=== PATIENT | female | born 1990 | race Caucasian/White ===

== ENCOUNTER 2018-06-19 20:13 | Emergency (ER) | payer SELFPAY ==
[~2018-06-19] VITALS: Ht 144.8 cm; Wt 78.9 kg
[2018-06-19 20:17] VITALS: BP 130/73
--- NOTE | 2018-06-19 20:19 | NUR ---
PT AMBULATORY TO ER LOBBY W/ STEADY GAIT IN STABLE CONDITION.
--- NOTE | 2018-06-19 22:28 | NUR ---
Oliva shi in [facility] - 06/19/18 at 2228 by JESSY PT TAKEN TO BED 8
--- NOTE | 2018-06-19 22:28 | NUR ---
PT TO ER BED 8
--- NOTE | 2018-06-19 23:02 | NUR ---
PT BIB C/O RIGHT SIDED HEADACHE X5 DAYS; 8/10 INTERMETENT HEAD PAIN THAT RADIATES FROM THE RIGHT LOBE TO BACK OF HEAD. PT DESCRIBES THE PAIN PRESSURE. DENIES N/V. +DIZZINESS. PT STATES TO TAKING TYLENOL LAST NIGHT AND EXCEDREN W/O RELIEF. DENIES FALL. AAOX4. AT BEDSIDE. BED IN LOWER LOCKED POSITION; BEDRAILS UP X1. ER MD MADE AWARE OF PT STATUS. HX: DENIES RX: DENIES
--- NOTE | 2018-06-19 23:06 | NUR ---
PT UP TO BATHROOM. AMBULATORY W/STEADY GATE.
--- NOTE | 2018-06-19 23:12 | NUR ---
JALIL BIANCHI AT BEDSIDE FOR EVALUATION.
[2018-06-19] MEDS ORDERED: diphenhydrAMINE 50 MG/ML VIAL IM ONE (23:30)
[2018-06-19] MEDS ORDERED: PROCHLORPERAZINE 10 MG/2 ML VIAL IM ONE (23:30)
[2018-06-20 01:00] VITALS: BP 122/67
--- NOTE | 2018-06-20 01:00 | NUR ---
Patient discharged with v/s stable. Written and verbal after care instructions given and explained. Patient alert, oriented and verbalized understanding of instructions. Ambulatory with steady gait. All questions addressed prior to discharge. ID band removed. Patient advised to follow up with PMD. Rx of Tramadol and Motrin given. Patient educated on indication of medication including possible reaction and side effects. Opportunity to ask questions provided and answered.
== END 2018-06-20 01:00 | disposition home or self-care (01) ==
LOC: MED 20:13
DX: G44.209 Tension-type headache, unspecified, not intractable (principal)
CPT/HCPCS: 81002; 81025; 96372; 99283; J0780; J1200

== ENCOUNTER 2019-03-13 17:17 | Emergency (ER) | payer OTHER ==
[~2019-03-13] VITALS: Ht 144.8 cm; Wt 81.6 kg
[2019-03-13 17:22] VITALS: BP 125/68
--- NOTE | 2019-03-13 17:27 | NUR ---
PT AMBULATED TO ER BED 08
--- NOTE | 2019-03-13 17:35 | NUR ---
PT C/O UPPER TO LEFT CHEST PAIN RADIATING TO LT ARM AND LT SHOULDER NUMBNESS AND TINGLING ON BOTH HANDS FOR 4 HOURS; PT ALSO C/O HEADACHE X2 DAYS. PATIENT STATES PAIN OF 9/10 AT THIS TIME; VSS; PATIENT POSITIONED FOR COMFORT; HOB ELEVATED; BEDRAILS UP X1; BED DOWN. ER MD MADE AWARE OF PT STATUS. PT IS ON MONITOR.
[2019-03-13] MEDS ORDERED: NACL 0.9% 1,000 ML IV ONE (18:20)
[2019-03-13] MEDS ORDERED: diphenhydrAMINE 50 MG/ML VIAL IVP ONE (18:20)
[2019-03-13] MEDS ORDERED: METOCLOPRAMIDE 10 MG/2 ML INJ VIAL IVP ONE (18:20)
--- NOTE | 2019-03-13 18:30 | NUR ---
PT HAS BEEN TAKEN TO CT SCAN VIA WHEELCHIAR ASSISTED BY THERAPY TECHNICIAN.
--- NOTE | 2019-03-13 18:38 | NUR ---
PT HAS BEEN BACK VIA WHEELCHAIR ASSISTED BY RUG DESIGNER.
[2019-03-13 18:58] LABS: BASOPHILS % (AUTO) 0.4 % (0.0-2.0); EOSINOPHILS # (AUTO) 0.1 K/uL (0-0.4); EOSINOPHILS % (AUTO) 1.1 % (0.0-4.0); HEMATOCRIT 39.6 % (36-48); LYMPHOCYTES # (AUTO) 1.9 K/uL (2.5-16.5); LYMPHOCYTES % (AUTO) 21.2 % (20.5-51.1); MEAN CORPUSCULAR HEMOGLOBIN 28 pg (27-31); MEAN CORPUSCULAR HGB CONC 33 g/dL (33-37); MEAN CORPUSCULAR VOLUME 85.8 fL (80-94); MONOCYTES # (AUTO) 0.7 K/uL (0.8-1.0); MONOCYTES % (AUTO) 7.4 % (1.7-9.3); NEUTROPHILS # (AUTO) 6.4 K/uL (1.8-7.7); NEUTROPHILS % (AUTO) 69.9 % (42.2-75.2); PLATELET COUNT (AUTO) 315 K/uL (140-450); RED BLOOD CELL COUNT(AUTO) 4.61 MIL/uL (4.20-5.40); RED CELL DISTRIBUTION WIDTH 14.1 % (11.6-13.7); WHITE BLOOD COUNT (AUTO) 9.1 K/uL (4.8-10.8)
--- NOTE | 2019-03-13 19:06 | NUR ---
Pt report given to CORNELIO Bravo. Transfer of care at this time.
[2019-03-13 19:07] LABS: ANION GAP 10.6 (8-16); CARBON DIOXIDE 29.1 mmol/L (21-32); CREATININE 0.7 mg/dL (0.6-1.3); POTASSIUM 3.7 mmol/L (3.5-5.1)
--- NOTE | 2019-03-13 19:07 | NUR ---
RECEIVED REPORT FROM CORNELIO WEN
[2019-03-13 19:09] LABS: PROTHROMBIN TIME 9.3 secs (10.8-13.4)
[2019-03-13 19:13] LABS: ALBUMIN 3.8 g/dL (3.4-5.0); TOTAL BILIRUBIN 0.3 mg/dL (0.0-1.0)
[2019-03-13 19:48] LABS: APPEARANCE,URINE CLOUDY (CLEAR); BILIRUBIN,URINE NEGATIVE (NEGATIVE); BLOOD, URINE 1+ (NEGATIVE); COLOR,URINE YELLOW (YELLOW); LEUKOCYTE ESTERASE ,URINE 1+ (NEGATIVE); NITRITE, URINE NEGATIVE (NEGATIVE); PH,URINE 7.5 (5.0-9.0); UGLUCOSE NEGATIVE (NEGATIVE)
[2019-03-13 19:53] LABS: RBC,URINE NONE SEEN /HPF (0-5); URIC ACID CRYSTALS,URINE None Seen /HPF (None Seen)
[2019-03-13] MEDS ORDERED: KETOROLAC 30 MG/ML VIAL IVP ONE (20:55)
--- NOTE | 2019-03-13 21:00 | NUR ---
PT RESTING IN BED WITH EYES CLOSED. VSS AT THIS TIME.
--- NOTE | 2019-03-13 21:21 | NUR ---
Patient discharged with v/s stable. Written and verbal after care instructions given and explained. Patient alert, oriented and verbalized understanding of instructions. Ambulatory with to home. All questions addressed prior to discharge. ID band removed. Patient advised to follow up with PMD. Rx of IBURPROFEN 600MG given. Patient educated on indication of medication including possible reaction and side effects. Opportunity to ask questions provided and answered.
[2019-03-13 21:23] VITALS: BP 103/51
== END 2019-03-13 21:21 | disposition home or self-care (01) ==
LOC: MED 17:17
DX: R51 Headache (principal); R11.0 Nausea; R20.0 Anesthesia of skin; R20.2 Paresthesia of skin; R07.89 Other chest pain
CPT/HCPCS: 36415; 70450; 71045; 80053; 81001; 81025; 83690; 83880; 84484; 85025; 85379; 85610; 87086; 93005; 96374; 96375; 99284; J1200; J1885; J2765; J7030

== ENCOUNTER 2020-03-13 22:12 | Emergency (ER) | payer OTHER ==
[~2020-03-13] VITALS: Ht 144.8 cm; Wt 81.8 kg
[2020-03-13 22:19] VITALS: BP 126/76
--- NOTE | 2020-03-13 22:30 | NUR ---
30 Y/O FEMALE PRESENTS TO ER WITH C/O RIGHT SIDE HEADACHE X 2WEEKS. 10/10 PAIN. PT STATES SHE HAS HAD A HEADACHE THAT BEGINS AT THE RIGHT YAZIDI, AND EXTENDS BACK TO RIGHT EAR REGION. PT ALSO STATES LOUD NOISES INTENSIFY HEADACHE. SHE ALSO C/O LIGHTHEADEDNESS, NUMBNESS AND TINGLING FROM NECK TO FINGER TIPS ON BUE, AND RIGHT YAZIDI TO BACK RIGHT EAR REGIION TTP. DENIES N/V/D, VISION CHANGES, INJURY/TRAUMA, SOB, COUGH, LOC, LBP. PT STATES SHE TOOK 500MG OF TYLENOL AT 1500 BEFORE PRESENTING TO ER. LMP 02/2018 PT HAS NEXPLANON IN LEFT ARM. A&OX4, PERRLA, GCS 15, VSS. R/R EQUAL, AND UNLABORED. SIDE RAIL X1, BED IN LOW POSITION, WILL CONTINUE TO MONITOR. NKDA DENIES PMH
[2020-03-13] MEDS ORDERED: KETOROLAC 30 MG/ML VIAL IM/IVP ONE (22:40)
[2020-03-13] MEDS ORDERED: METOCLOPRAMIDE 10 MG/2 ML INJ VIAL IVP ONE (22:40)
[2020-03-13] MEDS ORDERED: NACL 0.9% 1,000 ML IV ONE (22:40)
--- NOTE | 2020-03-13 23:52 | NUR ---
PT RESTING IN BED QUIETLY, VSS, R/R EQUAL, AND UNLABORED. SIDE RAIL X1, BED IN LOW POSITION WILL CONTINUE TO MONITOR.
--- NOTE | 2020-03-14 00:57 | NUR ---
PT RESTING IN BED QUIETLY, VSS, R/R EQUAL, AND UNLABORED. SIDE RAIL X1, BED IN LOW POSITION WILL CONTINUE TO MONITOR.
[2020-03-14 01:05] VITALS: BP 126/76
--- NOTE | 2020-03-14 01:07 | NUR ---
Patient discharged with v/s stable. Written and verbal after care instructions given and explained. Patient alert, oriented and verbalized understanding of instructions. Ambulatory with steady gait. All questions addressed prior to discharge. ID band removed. Patient advised to follow up with PMD. Rx of NORCO, BENADRYL, REGLAN, IBUPROFEN given. Patient educated on indication of medication including possible reaction and side effects. Opportunity to ask questions provided and answered.
== END 2020-03-14 01:06 | disposition home or self-care (01) ==
LOC: MED 22:12
DX: R51 Headache (principal); M54.2 Cervicalgia
CPT/HCPCS: 81002; 81025; 96361; 96374; 96375; 99284; J1885; J2765; J7030

== ENCOUNTER 2020-08-29 13:14 | Emergency (ER) | payer OTHER ==
[~2020-08-29] VITALS: Ht 144.8 cm; Wt 79.4 kg
[2020-08-29 13:19] VITALS: BP 124/61
--- NOTE | 2020-08-29 13:27 | NUR ---
30 Y/O FEMALE C/O LOW BACK PAIN RADIATING TO PELVIC REGION. PATIENT DENIES ANY ACCIDENT OR TRAUMA. PT DESCRIBES PELVIC PAIN CRAMPING, 5/10. DENIES ANY N/V. DENIES ANY DYSURIA OR VAGINAL DISCHARGE. NO OBVIOUS DEFORMITY NOTED. NO PMH NKDA
[2020-08-29] MEDS ORDERED: ACETAMINOPHEN 325 MG TAB PO STA (15:20)
[2020-08-29] MEDS ORDERED: ACETAMINOPHEN EXTRA STRENGTH 500 MG TAB PO ONE (15:35)
--- NOTE | 2020-08-29 15:43 | NUR ---
LAB AT CHAIRSIDE FOR BLOOD DRAW
--- NOTE | 2020-08-29 15:45 | NUR ---
PATIENT TAKEN TO ULTRASOUND VIA WHEELCHAIR
[2020-08-29 15:54] LABS: BASOPHILS % (AUTO) 0.5 % (0.0-2.0); EOSINOPHILS # (AUTO) 0.1 K/uL (0-0.4); EOSINOPHILS % (AUTO) 0.9 % (0.0-4.0); HEMATOCRIT 38.4 % (36-48); HEMOGLOBIN 13.1 g/dL (12.0-16.0); LYMPHOCYTES # (AUTO) 1.7 K/uL (2.5-16.5); MEAN CORPUSCULAR HEMOGLOBIN 31 pg (27-31); MEAN CORPUSCULAR HGB CONC 34 g/dL (33-37); MEAN CORPUSCULAR VOLUME 91.5 fL (80-94); MONOCYTES # (AUTO) 0.5 K/uL (0.8-1.0); MONOCYTES % (AUTO) 6.2 % (1.7-9.3); NEUTROPHILS # (AUTO) 6.3 K/uL (1.8-7.7); NEUTROPHILS % (AUTO) 72.4 % (42.2-75.2); PLATELET COUNT (AUTO) 276 K/uL (140-450); RED CELL DISTRIBUTION WIDTH 13.5 % (11.6-13.7); WHITE BLOOD COUNT (AUTO) 8.7 K/uL (4.8-10.8)
[2020-08-29 16:03] LABS: APPEARANCE,URINE CLEAR (CLEAR); BILIRUBIN,URINE NEGATIVE (NEGATIVE); BLOOD, URINE NEGATIVE (NEGATIVE); COLOR,URINE YELLOW (YELLOW); LEUKOCYTE ESTERASE ,URINE TRACE (NEGATIVE); NITRITE, URINE NEGATIVE (NEGATIVE); PH,URINE 8.5 (5.0-9.0); UGLUCOSE NEGATIVE (NEGATIVE)
[2020-08-29 16:15] LABS: RBC,URINE 0-5 /HPF (0-5)
--- NOTE | 2020-08-29 16:29 | NUR ---
PATIENT STATES DECREASE IN PAIN AFTER RECEIVING TYLENOL. NO COMPLAINTS AT THIS TIME. VSS
[2020-08-29] MEDS ORDERED: NITROFURANTOIN 100 MG CAP PO STA (17:18)
[2020-08-29] MEDS ORDERED: NITR100C7 PO (17:20)
[2020-08-29 17:48] VITALS: BP 124/61
== END 2020-08-29 17:48 | disposition home or self-care (01) ==
LOC: MED 13:14
DX: O23.41 Unspecified infection of urinary tract in pregnancy, first trimester (principal); Z79.899 Other long term (current) drug therapy
CPT/HCPCS: 36415; 76817; 81001; 81025; 84702; 85025; 86900; 86901; 87086; 99284

== ENCOUNTER 2020-10-06 19:04 | Emergency (ER) | payer OTHER ==
[~2020-10-06] VITALS: Ht 152.4 cm; Wt 85.3 kg
[~2020-10-06 19:04] MED LIST: NITR100C7 PO
[2020-10-06 19:10] VITALS: BP 106/44
--- NOTE | 2020-10-06 19:15 | NUR ---
PT AMBULATORY TO BED #1
--- NOTE | 2020-10-06 19:25 | NUR ---
PATIENT PRESENTS TO ED WITH C/O RIGHT LOWER BACK RADIATING DOWN RIGHT LEG X 1 WEEK . PT STATES IS 10 WEEKS . DENIES N/V/D; SKIN IS PINK/WARM/DRY; AAOX4 WITH EVEN AND STEADY GAIT; LUNGS CLEAR BL; HR EVEN AND REGULAR; PT DENIES ANY FEVER, CP, SOB, OR COUGH AT THIS TIME; VSS; PATIENT POSITIONED FOR COMFORT; BEDRAILS UP X2; BED DOWN. ER MD MADE AWARE OF PT STATUS.
--- NOTE | 2020-10-06 19:36 | NUR ---
Dr. Alvarez with pt for MSE
[2020-10-06] MEDS ORDERED: NACL 0.9% 1,000 ML IV ONE (19:45)
[2020-10-06 20:12] LABS: BASOPHILS % (AUTO) 0.5 % (0.0-2.0); EOSINOPHILS # (AUTO) 0.1 K/uL (0-0.4); EOSINOPHILS % (AUTO) 1.1 % (0.0-4.0); HEMOGLOBIN 12.2 g/dL (12.0-16.0); LYMPHOCYTES # (AUTO) 1.8 K/uL (2.5-16.5); LYMPHOCYTES % (AUTO) 22.4 % (20.5-51.1); MEAN CORPUSCULAR HEMOGLOBIN 31 pg (27-31); MEAN CORPUSCULAR HGB CONC 34 g/dL (33-37); MEAN CORPUSCULAR VOLUME 91.7 fL (80-94); MONOCYTES # (AUTO) 0.5 K/uL (0.8-1.0); MONOCYTES % (AUTO) 6.1 % (1.7-9.3); NEUTROPHILS # (AUTO) 5.7 K/uL (1.8-7.7); NEUTROPHILS % (AUTO) 69.9 % (42.2-75.2); PLATELET COUNT (AUTO) 288 K/uL (140-450); RED BLOOD CELL COUNT(AUTO) 3.92 MIL/uL (4.20-5.40); RED CELL DISTRIBUTION WIDTH 13.6 % (11.6-13.7); WHITE BLOOD COUNT (AUTO) 8.2 K/uL (4.8-10.8)
[2020-10-06 20:15] LABS: APPEARANCE,URINE CLEAR (CLEAR); BILIRUBIN,URINE NEGATIVE (NEGATIVE); BLOOD, URINE TRACE-I (NEGATIVE); COLOR,URINE YELLOW (YELLOW); LEUKOCYTE ESTERASE ,URINE 3+ (NEGATIVE); NITRITE, URINE NEGATIVE (NEGATIVE); PH,URINE 6.5 (5.0-9.0); UGLUCOSE NEGATIVE (NEGATIVE)
--- NOTE | 2020-10-06 20:15 | NUR ---
US IN PROGRESS
[2020-10-06 20:22] LABS: WBC,URINE 16-25 (MOD) /HPF (0-5)
[2020-10-06 20:31] LABS: ALBUMIN 3.2 g/dL (3.4-5.0); ANION GAP 10.5 (8-16); CARBON DIOXIDE 26.3 mmol/L (21-32); CREATININE 0.7 mg/dL (0.6-1.3); POTASSIUM 3.8 mmol/L (3.5-5.1); TOTAL BILIRUBIN 0.2 mg/dL (0.0-1.0)
[2020-10-06] MEDS ORDERED: NITR100C7 PO (21:05)
[2020-10-06 21:20] VITALS: BP 107/62
== END 2020-10-06 21:20 | disposition home or self-care (01) ==
LOC: MED 19:04
DX: O23.41 Unspecified infection of urinary tract in pregnancy, first trimester (principal); O26.891 Other specified pregnancy related conditions, first trimester; M54.9 Dorsalgia, unspecified; Z3A.10 10 weeks gestation of pregnancy; Z79.899 Other long term (current) drug therapy
CPT/HCPCS: 36415; 76801; 80053; 81001; 84702; 85025; 87086; 96360; 99284; J7030; 99283

== ENCOUNTER 2021-05-05 20:34 | Emergency (ER) | payer OTHER ==
[~2021-05-05] VITALS: Ht 144.8 cm; Wt 81.6 kg
[2021-05-05 20:55] VITALS: BP 108/68
--- NOTE | 2021-05-05 21:02 | NUR ---
patient given urine cup for urine collection and patient sent to lobby.
--- NOTE | 2021-05-05 23:33 | NUR ---
PT AMBULATED TO ER BED 02 UNASSISTED
[2021-05-06 00:23] VITALS: BP 132/71
--- NOTE | 2021-05-06 00:25 | NUR ---
PATIENT DC HOME FEELING WELL VITALS SIGNS IN NORMAL LIMITS ALL DC INSTRUCTION GAVE AND EXPLAINED WE RECOMEND TO FOLLOW UP WITH PCP OR COMING BACK TO ED IF THE SYMPTOMS DOENT IMPROVING OR GETT WORSE //Iliana GRIMES
== END 2021-05-06 00:25 | disposition home or self-care (01) ==
LOC: MED 20:34
DX: O86.09 Infection of obstetric surgical wound, other surgical site (principal); Z79.899 Other long term (current) drug therapy; Z98.890 Other specified postprocedural states
CPT/HCPCS: 99281

== ENCOUNTER 2022-02-02 16:37 | Emergency (ER) | payer OTHER ==
[~2022-02-02] VITALS: Ht 144.8 cm; Wt 77.6 kg
[2022-02-02 17:02] VITALS: BP 155/68
--- NOTE | 2022-02-02 17:20 | NUR ---
Dr Chatman at bedside for evaluation
[2022-02-02] MEDS ORDERED: ACETAMINOPHEN EXTRA STRENGTH 500 MG TAB PO ONE (17:25)
--- NOTE | 2022-02-02 17:25 | NUR ---
30 y/o female c/o pelvic pain/LLQ pain x today along with lower extremity weakness. Pain reported at 6/10, constant, sharp, worsening with movement. Tried Tylenol without relief. Denies dysuria, hematuria, or discharge, fever, chills, sob. Denies trauma, injury, numbness, or tingling to extremities. Seen by OB on Sunday, 10 weeks gestation, . pmh: denies NKA
--- NOTE | 2022-02-02 17:52 | NUR ---
LAB AT BEDSIDE
[2022-02-02 18:07] LABS: BASOPHILS % (AUTO) 0.4 % (0.0-2.0); EOSINOPHILS % (AUTO) 0.5 % (0.0-4.0); HEMATOCRIT 35.8 % (36-48); HEMOGLOBIN 12.2 g/dL (12.0-16.0); LYMPHOCYTES # (AUTO) 0.9 K/uL (2.5-16.5); LYMPHOCYTES % (AUTO) 10.8 % (20.5-51.1); MEAN CORPUSCULAR HEMOGLOBIN 30 pg (27-31); MEAN CORPUSCULAR HGB CONC 34 g/dL (33-37); MEAN CORPUSCULAR VOLUME 89.6 fL (80-94); MONOCYTES # (AUTO) 0.5 K/uL (0.8-1.0); MONOCYTES % (AUTO) 6.4 % (1.7-9.3); NEUTROPHILS # (AUTO) 6.7 K/uL (1.8-7.7); NEUTROPHILS % (AUTO) 81.9 % (42.2-75.2); PLATELET COUNT (AUTO) 263 K/uL (140-450); RED CELL DISTRIBUTION WIDTH 13.7 % (11.6-13.7); WHITE BLOOD COUNT (AUTO) 8.2 K/uL (4.8-10.8)
[2022-02-02 18:28] LABS: ALBUMIN 3.2 g/dL (3.4-5.0); ANION GAP 12.6 (8-16); CARBON DIOXIDE 23.8 mmol/L (21-32); CREATININE 0.6 mg/dL (0.6-1.3); POTASSIUM 3.4 mmol/L (3.5-5.1); TOTAL BILIRUBIN 0.4 mg/dL (0.0-1.0)
--- NOTE | 2022-02-02 19:26 | NUR ---
Pt report given to CORNELIO Pate. Transfer of care at this time.
[2022-02-02] MEDS ORDERED: ACET-10509 PO (19:32)
[2022-02-02 20:04] LABS: APPEARANCE,URINE CLEAR (CLEAR); BILIRUBIN,URINE NEGATIVE (NEGATIVE); BLOOD, URINE NEGATIVE (NEGATIVE); COLOR,URINE YELLOW (YELLOW); LEUKOCYTE ESTERASE ,URINE NEGATIVE (NEGATIVE); NITRITE, URINE NEGATIVE (NEGATIVE); PH,URINE 6.5 (5.0-9.0); UGLUCOSE NEGATIVE (NEGATIVE)
[2022-02-02 21:05] VITALS: BP 116/49
== END 2022-02-02 21:05 | disposition home or self-care (01) ==
LOC: MED 16:37
DX: O26.891 Other specified pregnancy related conditions, first trimester (principal); R10.2 Pelvic and perineal pain; E87.6 Hypokalemia; Z3A.09 9 weeks gestation of pregnancy; Z79.899 Other long term (current) drug therapy
CPT/HCPCS: 36415; 76801; 80053; 81003; 81025; 83690; 84702; 85025; 86900; 86901; 99284; Q0092

== ENCOUNTER 2022-02-20 17:20 | Emergency (ER) | payer OTHER ==
[~2022-02-20] VITALS: Ht 144.8 cm; Wt 79.4 kg
[~2022-02-20 17:20] MED LIST changes: +ACET-10509 PO
[2022-02-20 17:39] VITALS: BP 114/62
--- NOTE | 2022-02-20 17:46 | NUR ---
PT AMBULATED TO ER BED 1 WITH A STEADY GAIT.
--- NOTE | 2022-02-20 17:47 | NUR ---
ASSUMED CARE OF PT AT THIS TIME.
--- NOTE | 2022-02-20 18:30 | NUR ---
32 Y/O FEMALE C/O LOWER BACK PAIN 01/25 DESCRIBES PRESSURE LIKE TO CRAMPING. PT STATES PAIN STARTS IN LOWER BACK AND RADIATES TO PELVIC REGION BILATERALLY X7HRS. PT STATES 12 WEEKS. [id number]. STATES + CARE. STATES +N/V, DENIES FEVER/CHILLS. DENIES PMH NKA
--- NOTE | 2022-02-20 18:45 | NUR ---
DR. MUNROE AT PT BEDSIDE FOR FURTHER EVALUATION.
[2022-02-20] MEDS ORDERED: LIDOCAINE 5% 1 EA PATCH TP STA (18:47)
[2022-02-20] MEDS ORDERED: ACETAMINOPHEN EXTRA STRENGTH 500 MG TAB PO ONE (18:50)
--- NOTE | 2022-02-20 18:54 | NUR ---
US TECH AT PT BEDSIDE.
--- NOTE | 2022-02-20 19:04 | NUR ---
HAND MODEL AT PT BEDSIDE.
[2022-02-20 19:13] LABS: BASOPHILS % (AUTO) 0.5 % (0.0-2.0); EOSINOPHILS # (AUTO) 0.1 K/uL (0-0.4); EOSINOPHILS % (AUTO) 0.7 % (0.0-4.0); HEMATOCRIT 34.8 % (36-48); HEMOGLOBIN 11.7 g/dL (12.0-16.0); LYMPHOCYTES % (AUTO) 25.3 % (20.5-51.1); MEAN CORPUSCULAR HEMOGLOBIN 30 pg (27-31); MEAN CORPUSCULAR HGB CONC 33 g/dL (33-37); MEAN CORPUSCULAR VOLUME 90.3 fL (80-94); MONOCYTES # (AUTO) 0.5 K/uL (0.8-1.0); MONOCYTES % (AUTO) 6.2 % (1.7-9.3); NEUTROPHILS # (AUTO) 5.3 K/uL (1.8-7.7); NEUTROPHILS % (AUTO) 67.3 % (42.2-75.2); PLATELET COUNT (AUTO) 263 K/uL (140-450); RED BLOOD CELL COUNT(AUTO) 3.86 MIL/uL (4.20-5.40); RED CELL DISTRIBUTION WIDTH 14.1 % (11.6-13.7); WHITE BLOOD COUNT (AUTO) 7.9 K/uL (4.8-10.8)
--- NOTE | 2022-02-20 19:17 | NUR ---
GAVE REPORT TO CORNELIO GOLD. TRANSFER OF CARE AT THIS TIME.
[2022-02-20 19:19] LABS: APPEARANCE,URINE CLEAR (CLEAR); BILIRUBIN,URINE NEGATIVE (NEGATIVE); BLOOD, URINE NEGATIVE (NEGATIVE); COLOR,URINE YELLOW (YELLOW); LEUKOCYTE ESTERASE ,URINE NEGATIVE (NEGATIVE); NITRITE, URINE NEGATIVE (NEGATIVE); UGLUCOSE NEGATIVE (NEGATIVE)
[2022-02-20 19:31] LABS: ANION GAP 12.9 (8-16); CARBON DIOXIDE 24.5 mmol/L (21-32); CREATININE 0.6 mg/dL (0.6-1.3); POTASSIUM 4.4 mmol/L (3.5-5.1); TOTAL BILIRUBIN 0.2 mg/dL (0.0-1.0)
--- NOTE | 2022-02-20 19:52 | NUR ---
Dr. Davis verbally informed patient stated pain is "7/10." Dr. Davis verbalized understanding, no new orders.
--- NOTE | 2022-02-20 19:55 | NUR ---
Patient informed that Dr. Davis verbally informed patient stated pain is "7/10." Patient verbalized undertanding, no further questions from patient.
[2022-02-20] MEDS ORDERED: ACET-10509 PO (20:31)
[2022-02-20 20:46] VITALS: BP 108/74
--- NOTE | 2022-02-20 20:48 | NUR ---
Patient discharged with v/s stable. Written and verbal after care instructions given and explained. Patient alert, oriented and verbalized understanding of instructions. Ambulatory with steady gait. All questions addressed prior to discharge. ID band removed. Patient advised to follow up with PMD. Rx of acetaminophen 500mg given. Patient stated pain is "1/10, tolerable." Patient educated on indication of medication including possible reaction and side effects. Opportunity to ask questions provided and answered.
== END 2022-02-20 20:48 | disposition home or self-care (01) ==
LOC: MED 17:20
DX: O26.891 Other specified pregnancy related conditions, first trimester (principal); M54.50 Low back pain, unspecified; Z3A.12 12 weeks gestation of pregnancy; Z79.899 Other long term (current) drug therapy
CPT/HCPCS: 36415; 76801; 80053; 81003; 81025; 83690; 84702; 85025; 99284; Q0092

== ENCOUNTER 2022-03-02 19:41 | Emergency (ER) | payer OTHER ==
[~2022-03-02] VITALS: Ht 144.8 cm; Wt 78.0 kg
[2022-03-02 20:07] VITALS: BP 129/69
--- NOTE | 2022-03-02 20:12 | NUR ---
TO LOBBY FOLLOWING TRIAGE
--- NOTE | 2022-03-02 20:27 | NUR ---
PT TAKEN TO BED 8
--- NOTE | 2022-03-02 20:52 | NUR ---
32YR OLD FEMALE BIB SELF C/O VAG BLEED X TODAY. PT IS 14WEEKS PREG. BLEEDING STARTED TODAY BRIGHT RED BLOOD WITH CLOTS. MOD FLOW. LOWER ABD CRAMPING RADIATING TO LOWER BACK . 9/10 PAIN LEVEL. RESP EVEN AND UNLABORED. SKIN WARM DRY AND INTACT. NO DISTRESS NOTED. HOB ELEVATED. BED AT LOWEST LEVEL. SIDE RAILS UP X1. NKDA NO MED HX
--- NOTE | 2022-03-02 21:17 | NUR ---
HEART TONES COMPLETED. HR 202
--- NOTE | 2022-03-02 21:46 | NUR ---
DR JACOBS AT BEDSIDE
--- NOTE | 2022-03-02 21:54 | NUR ---
PENDING DC PAPERWORK
[2022-03-02] MEDS ORDERED: MORPHINE SULFATE 4 MG/ML SYR IM ONE (22:00)
[2022-03-02] MEDS ORDERED: ACET-8386 PO (22:28)
[2022-03-02 22:39] VITALS: BP 102/55
--- NOTE | 2022-03-02 22:39 | NUR ---
Patient discharged with v/s stable. Written and verbal after care instructions given and explained. Patient alert, oriented and verbalized understanding of instructions. Ambulatory with steady gait. All questions addressed prior to discharge. ID band removed. Patient advised to follow up with PMD. Rx of HYDROCODONE ACETAMINOPHEN given.
--- NOTE | 2022-03-02 22:41 | NUR ---
The patient's care was reviewed and supervised by Nahomy Farah RN.
[2022-03-02] MEDS ORDERED: KETOROLAC 30 MG/ML VIAL ONE (23:25)
== END 2022-03-02 22:39 | disposition home or self-care (01) ==
LOC: MED 19:41
DX: O20.0 Threatened abortion (principal); Z3A.14 14 weeks gestation of pregnancy; Z98.890 Other specified postprocedural states
CPT/HCPCS: 81002; 81025; 96372; 99283; J1885; J2270

== ENCOUNTER 2022-03-13 19:25 | Emergency (ER) | payer OTHER ==
[~2022-03-13] VITALS: Ht 144.8 cm; Wt 79.8 kg
[~2022-03-13 19:25] MED LIST changes: +ACET-8386 PO
[2022-03-13 20:17] VITALS: BP 128/85
--- NOTE | 2022-03-13 20:56 | NUR ---
PT TAKEN TO BED 4
--- NOTE | 2022-03-13 21:15 | NUR ---
ASSUME CARE OF PT, PT AMBULATED TO ED 4, PT C/O LOWER BACK PAIN AND RIGHT FLANK PAIN, PT STATES SHE IS 15 WEEKS , LMP 11/27/21, PT DX UTI 03/06/22 AND GIVEN ANTIBIOTIC BUT FEELS LIKE IT DID NOT OWRK, PT HAS FEVER 101 AND COUGH TODAY.
--- NOTE | 2022-03-13 22:12 | NUR ---
Dr. Treviño examining patient.
[2022-03-13] MEDS ORDERED: ACETAMINOPHEN EXTRA STRENGTH 500 MG TAB PO ONE (22:25)
[2022-03-13] MEDS ORDERED: LIDOCAINE 5% 1 EA PATCH TP ONE (22:28)
--- NOTE | 2022-03-13 23:00 | NUR ---
PT AMBULATED TO RESTROOM WITH UPRIGHT STEADY GAIT.
[2022-03-13 23:52] LABS: APPEARANCE,URINE CLOUDY (CLEAR); BILIRUBIN,URINE NEGATIVE (NEGATIVE); BLOOD, URINE NEGATIVE (NEGATIVE); COLOR,URINE YELLOW (YELLOW); LEUKOCYTE ESTERASE ,URINE NEGATIVE (NEGATIVE); NITRITE, URINE NEGATIVE (NEGATIVE); UGLUCOSE NEGATIVE (NEGATIVE)
--- NOTE | 2022-03-14 01:00 | NUR ---
PT RESTING IN BED
[2022-03-14] MEDS ORDERED: HYDROcodone/APAP 5/325 MG 1 TAB TAB PO ONE (02:35)
--- NOTE | 2022-03-14 03:00 | NUR ---
PT C/O RIGHT FLANK PAIN, MD NOTIFIED.
[2022-03-14] MEDS ORDERED: NACL 0.9% 1,000 ML IV ONE ×2 (04:30→04:55)
--- NOTE | 2022-03-14 05:35 | NUR ---
PT STATES SHE IS FEELING BETTER. PAIN HAS DECREASED.
[2022-03-14 05:44] VITALS: BP 110/58
--- NOTE | 2022-03-14 05:44 | NUR ---
Patient discharged with v/s stable. Written and verbal after care instructions given and explained. Patient verbalized understanding. Ambulatory with steady gait. All questions addressed prior to discharge. Advised to follow up with PMD.
[2022-03-14] MEDS ORDERED: LIDOCAINE 5% 1 EA PATCH TP SCH (09:00)
== END 2022-03-14 05:44 | disposition home or self-care (01) ==
LOC: MED 19:25
DX: O20.0 Threatened abortion (principal); O26.892 Other specified pregnancy related conditions, second trimester; M54.50 Low back pain, unspecified; O36.8320 Maternal care for abnormalities of the fetal heart rate or rhythm, second trimester, not applicable or unspecified; O23.42 Unspecified infection of urinary tract in pregnancy, second trimester; Z3A.15 15 weeks gestation of pregnancy; Z79.899 Other long term (current) drug therapy; Z79.2 Long term (current) use of antibiotics; Z79.891 Long term (current) use of opiate analgesic
CPT/HCPCS: 76805; 81003; 81025; 96360; 96361; 99285; J7030; Q0092

== ENCOUNTER 2022-05-17 21:50 | Observation (INO) | payer OTHER ==
[~2022-05-17 21:50] MED LIST changes: -ACET-8386 PO; +ACET-8905 PO
[2022-05-17 22:20] VITALS: BP 125/71
== END 2022-05-18 00:01 | disposition home or self-care (01) ==
LOC: MFCC 21:50
PROVIDERS: ADMIT Obstetrics & Gynecology; ATTEND Obstetrics & Gynecology
DX: O26.892 Other specified pregnancy related conditions, second trimester (principal); R07.89 Other chest pain; R10.9 Unspecified abdominal pain; Z3A.25 25 weeks gestation of pregnancy
CPT/HCPCS: 59025; 81000; G0378; G0379

== ENCOUNTER 2022-05-17 22:32 | Emergency (ER) | payer OTHER ==
[~2022-05-17] VITALS: Ht 144.8 cm; Wt 81.6 kg
[~2022-05-17 22:32] MED LIST changes: +ACET-8386 PO; -ACET-8905 PO
[2022-05-17 22:53] VITALS: BP 109/72
--- NOTE | 2022-05-17 22:57 | NUR ---
PT W/C ASSISTED TO THE LOBBY
[2022-05-18 00:27] VITALS: BP 109/72
--- NOTE | 2022-05-18 00:27 | NUR ---
Patient discharged. Written and verbal after care instructions given and explained. Patient verbalized understanding. Ambulatory with steady gait. ID band removed. All questions addressed prior to discharge. Advised to follow up with PMD.
== END 2022-05-18 00:27 | disposition home or self-care (01) ==
LOC: MED 22:32
DX: O26.892 Other specified pregnancy related conditions, second trimester (principal); R06.00 Dyspnea, unspecified; Z3A.24 24 weeks gestation of pregnancy; Z79.899 Other long term (current) drug therapy
CPT/HCPCS: 93005; 99283